=== PATIENT | female | born 1985 | race Caucasian/White ===

== ENCOUNTER 2016-07-14 19:25 | Emergency (ER) | payer SELFPAY ==
--- NOTE | 2016-07-15 23:16 | ER ---
ADMIT: 07/14/2016 RM/LOC: ER [facility] MR#: [id number] [address] [facility] [address] [place], [place] [id number] JAME ACSTRO [address] [place], [place] [address] Emergency Room Report SEX: F AGE: 31 : 1985 DATE: 07/14/2016 ADDENDUM: See T-sheet for complete H and P. A 31-year-old female with history of psychiatric illness including bipolar, anxiety, presents to the ER complaining of bug bites, but also during her stay, she admits to suicidal ideation. She states she has a history of meth and alcohol abuse, but has been clean for the past 4 months. She admits that she is not taking any of her psychiatric medications at this time and feels quite anxious. She states she does have thoughts of hurting herself. She does not have a specific plan. Does not have any homicidal ideation at this time. She is otherwise healthy female with no medical problems. Our workup here consisted of a physical exam, which showed that she had some area of urticaria on her left proximal thigh. It does look like she might have had bug bites, but no signs of infection. Her vital signs were stable while she was in the ER. We did try to contact [facility] and [facility], which did not have any bed availability for the patient at this time. Because of her suicidal ideation, we then contacted [facility] in [place], we checked the psych facility and they said they were willing to have the patient come to their facility for evaluation for possible admission. The patient remained stable for the remainder of her stay in the ER and we did not do any lab work as she has no medical problems and nothing in her history makes to think that she would need a further workup with labs at this time. She is discharged to be transferred in stable condition down to [facility] for further evaluation. DIAGNOSES: 1. Suicidal ideation. 2. Anxiety. 3. Auditory hallucinations. 4. Urticaria of left leg, possible allergic reaction. Burak Mercado MD/ tamera JOB #: [id number] CC: Hemant Miller MD, Attending Physician Marjorie Reyes MD, Family Physician
--- NOTE | 2016-07-16 13:15 | NUR ---
Received SAD person referral. Patient was sent to [facility].
== END 2016-07-15 00:30 | disposition short-term general hospital (02) ==
LOC: ER 19:25
DX: R45.851 Suicidal ideations (principal); F41.9 Anxiety disorder, unspecified; R44.0 Auditory hallucinations; L50.9 Urticaria, unspecified; Z90.49 Acquired absence of other specified parts of digestive tract; Z88.2 Allergy status to sulfonamides